=== PATIENT | male | born 2000 | race Two or more races ===

== ENCOUNTER 2023-05-13 07:32 | Inpatient (IN) | payer MEDICAID, OTHER ==
[~2023-05-13] VITALS: Ht 177.8 cm; Wt 76.3 kg
[2023-05-13 08:00] VITALS: PULSE 74; RESP 14; O2SAT 97
[2023-05-13] MEDS ORDERED: SODIUM CHLORIDE 0.9% 1,000 ML IV ONE ×2 (08:00)
[2023-05-13 08:32] LABS: Basophils # (auto) 0 10 ^3/uL (0-0.2); Basophils % (auto) 0.2 % (0.0-2.0); Eosinophils # (auto) 0.1 10 ^3/uL (0-0.8); Eosinophils % (auto) 0.6 % (0.0-7.0); Hematocrit 43.5 % (41.0-53.0); Hemoglobin 14.5 g/dL (13.5-17.5); Mean Corpuscular Hemoglobin 28.2 pg (28.0-32.0); Mean Corpuscular Hgb Conc. 33.4 g/dL (32.0-36.0); Mean Corpuscular Volume 84.5 fL (80.0-100.0); Monocytes # (auto) 0.7 10 ^3/uL (0-1.3); Monocytes % (auto) 4.5 % (0.0-12.0); Neutrophils # (auto) 13.1 10 ^3/uL (1.6-8.6); Neutrophils % (auto) 87.7 % (37.0-80.0); Red Blood Cells 5.15 10^6/uL (4.5-5.90); Red Cell Distribution Width 12.8 % (11.8-14.3); White Blood Cell 14.9 10^3/uL (4.4-10.8)
[2023-05-13 08:49] LABS: Alanine Aminotransferase 30 U/L (7-40); Alkaline Phosphatase 77 U/L (46-116); Anion Gap 10 (5-15); Aspartate Aminotransferase 21 U/L (13-40); BUN/Creatinine Ratio 12.3 (10.0-20.0); Blood Alcohol < 3.0 mg/dL (<10); Blood Urea Nitrogen 16 mg/dL (9-23); Calcium 10.1 mg/dL (8.5-10.1); Carbon Dioxide 23 mmol/L (20-30); Chloride 103 mmol/L (98-107); Glucose 195 mg/dL (74-106); Potassium 4.6 mmol/L (3.5-5.1); Sodium 136 mmol/L (136-145)
[2023-05-13 08:50] LABS: Bilirubin, Total 1.2 mg/dL (0.2-1.0); Total Protein 7.7 g/dL (5.7-8.2)
[2023-05-13] MEDS ORDERED: DEXTROSE (50%) 50ML SYRG IV PRN (10:45)
[2023-05-13] MEDS ORDERED: ONDANSETRON HCL 4 MG/2 ML VIAL IV PRN (10:45)
[2023-05-13] MEDS ORDERED: MORPHINE SULFATE INJ 2 MG/ml SYRG IV PRN (10:45)
[2023-05-13] MEDS ORDERED: LORazepam 2MG/ML-1ML VIAL IV PRN ×2 (10:45→19:15)
[2023-05-13] MEDS ORDERED: SODIUM CHLORIDE 0.9% 1,000 ML IV SCH (10:45)
[2023-05-13] MEDS ORDERED: DOCUSATE SOD 100 MG CAP PO PRN (10:45)
[2023-05-13 10:50] LABS: Amphetamine Screen, Urine Neg (NEGATIVE)
[2023-05-13 10:51] LABS: Barbiturate Scree,Urine Neg (NEGATIVE)
[2023-05-13 10:52] LABS: Benzodiazephine Screen, Urine Neg (NEGATIVE); Cocaine Screen, Urine Neg (NEGATIVE); Opiate Scree,Urine Neg (NEGATIVE)
[2023-05-13 10:53] LABS: Cannabinoid Screen, Urine Pos (NEGATIVE); Phencyclidine Screen, Urine Neg (NEGATIVE)
[2023-05-13 10:57] LABS: Urine Bacteria NONE SEEN /hpf (None Seen); Urine Blood 1+ /uL (Negative); Urine Clarity Clear (Clear); Urine Color Colorless (Yellow); Urine Protein, UAD TRACE (Negative); Urine Specific Gravity 1.012 (1.001-1.035); Urine Urobilinogen Normal (Negative); Urine WBC 1 /hpf (0 - 3)
[2023-05-13] MEDS: InsuLIN REG 1unit/0.01ml Soln (100units/ml) SC SCH ×3 (11:30→22:00)
[2023-05-13] MEDS ORDERED: InsuLIN REG 1unit/0.01ml Soln (100units/ml) SC SCH (12:00)
[2023-05-13] MEDS ORDERED: ACCU-CHEK COMFORT CURVE STRIP VI SCH (12:00)
[2023-05-13] MEDS: SODIUM CHLORIDE 0.9% 1,000 ML IV SCH (16:10)
[2023-05-13] MEDS: ACCU-CHEK COMFORT CURVE STRIP VI SCH ×2 (16:49→22:00)
[2023-05-13 19:45] VITALS: O2SAT 98
[2023-05-13 22:00] VITALS: BP 105/61; PULSE 73; RESP 18; TEMP 98.4; O2SAT 100
[2023-05-13] MEDS ORDERED: SERT25TA84 PO (22:10)
[2023-05-14 11:20] LABS: Alanine Aminotransferase 19 U/L (7-40); Alkaline Phosphatase 60 U/L (46-116); Anion Gap 5 (5-15); Aspartate Aminotransferase 18 U/L (13-40); BUN/Creatinine Ratio 7.2 (10.0-20.0); Bilirubin, Total 1.2 mg/dL (0.2-1.0); Blood Urea Nitrogen 8 mg/dL (9-23); Calcium 8.8 mg/dL (8.5-10.1); Carbon Dioxide 25 mmol/L (20-30); Chloride 111 mmol/L (98-107); Glucose 81 mg/dL (74-106); Potassium 4.2 mmol/L (3.5-5.1); Sodium 141 mmol/L (136-145); Total Protein 6.3 g/dL (5.7-8.2)
[2023-05-14] MEDS: ACCU-CHEK COMFORT CURVE STRIP VI SCH ×3 (11:30→23:11)
[2023-05-14] MEDS: InsuLIN REG 1unit/0.01ml Soln (100units/ml) SC SCH ×3 (11:30→22:00)
[2023-05-14 14:10] LABS: Basophils # (auto) 0 10 ^3/uL (0-0.2); Basophils % (auto) 0.2 % (0.0-2.0); Eosinophils # (auto) 0.1 10 ^3/uL (0-0.8); Hematocrit 39.7 % (41.0-53.0); Hemoglobin 13.2 g/dL (13.5-17.5); Lymphocytes # (auto) 1.7 10 ^3/uL (0.4-5.4); Lymphocytes % (auto) 17.4 % (10.0-50.0); Mean Corpuscular Hemoglobin 28.6 pg (28.0-32.0); Mean Corpuscular Hgb Conc. 33.4 g/dL (32.0-36.0); Mean Corpuscular Volume 85.7 fL (80.0-100.0); Monocytes # (auto) 0.9 10 ^3/uL (0-1.3); Monocytes % (auto) 8.7 % (0.0-12.0); Neutrophils # (auto) 7.2 10 ^3/uL (1.6-8.6); Neutrophils % (auto) 72.7 % (37.0-80.0); Nucleated Red Blood Cells % 0.2 %; Red Blood Cells 4.63 10^6/uL (4.5-5.90); White Blood Cell 9.8 10^3/uL (4.4-10.8)
[2023-05-14 16:30] VITALS: BP 104/64; PULSE 117; RESP 70; TEMP 99.2; O2SAT 96
[2023-05-14 21:52] VITALS: BP 125/69; PULSE 72; RESP 18; TEMP 98.1; O2SAT 97
[2023-05-15] MEDS: SODIUM CHLORIDE 0.9% 1,000 ML IV SCH (03:40)
[2023-05-15 05:15] VITALS: BP 100/58; PULSE 80; RESP 18; TEMP 97.7; O2SAT 96
[2023-05-15 06:28] LABS: Anion Gap 6 (5-15); Carbon Dioxide 27 mmol/L (20-30); Chloride 109 mmol/L (98-107); Potassium 4.2 mmol/L (3.5-5.1); Sodium 142 mmol/L (136-145)
[2023-05-15 06:29] LABS: Calcium 8.8 mg/dL (8.5-10.1)
[2023-05-15 06:34] LABS: BUN/Creatinine Ratio 6.5 (10.0-20.0); Blood Urea Nitrogen 6 mg/dL (9-23); Glucose 81 mg/dL (74-106)
[2023-05-15 06:43] LABS: Basophils # (auto) 0 10 ^3/uL (0-0.2); Basophils % (auto) 0.1 % (0.0-2.0); Eosinophils # (auto) 0.2 10 ^3/uL (0-0.8); Eosinophils % (auto) 2.4 % (0.0-7.0); Hematocrit 39.1 % (41.0-53.0); Hemoglobin 13.2 g/dL (13.5-17.5); Lymphocytes # (auto) 1.6 10 ^3/uL (0.4-5.4); Mean Corpuscular Hemoglobin 28.8 pg (28.0-32.0); Mean Corpuscular Hgb Conc. 33.8 g/dL (32.0-36.0); Mean Corpuscular Volume 85.3 fL (80.0-100.0); Monocytes # (auto) 0.6 10 ^3/uL (0-1.3); Monocytes % (auto) 9.1 % (0.0-12.0); Neutrophils # (auto) 4.1 10 ^3/uL (1.6-8.6); Neutrophils % (auto) 63.4 % (37.0-80.0); Nucleated Red Blood Cells % 0.2 %; Red Blood Cells 4.58 10^6/uL (4.5-5.90); Red Cell Distribution Width 12.8 % (11.8-14.3); White Blood Cell 6.5 10^3/uL (4.4-10.8)
[2023-05-15] MEDS: ACCU-CHEK COMFORT CURVE STRIP VI SCH (06:51)
[2023-05-15] MEDS: InsuLIN REG 1unit/0.01ml Soln (100units/ml) SC SCH (06:51)
[2023-05-15 08:30] VITALS: BP 116/75; PULSE 81; RESP 19; TEMP 97.7; O2SAT 98
[2023-05-15 10:05] VITALS: BP 116/75; PULSE 81; RESP 19; TEMP 97.7; O2SAT 98
== END 2023-05-15 10:35 | disposition home or self-care (01) | DRG 53 ==
LOC: ER 07:32 → EDBD 07:32 → OVERFLOW 10:37 → CENTRAL 21:00
PROVIDERS: ADMIT Internal Medicine Pulmonary Disease; ATTEND Student in an Organized Health Care Education/Training Program
DX: G40.409 Other generalized epilepsy and epileptic syndromes, not intractable, without status epilepticus (principal); D72.829 Elevated white blood cell count, unspecified; J45.909 Unspecified asthma, uncomplicated; R73.9 Hyperglycemia, unspecified; Z82.49 Family history of ischemic heart disease and other diseases of the circulatory system; Z83.3 Family history of diabetes mellitus; R03.0 Elevated blood-pressure reading, without diagnosis of hypertension
CPT/HCPCS: 36415; 70450; 70551; 71045; 80048; 80053; 80307; 80320; 81001; 82962; 83036; 84484; 85025; 86592; 95819; G0378; J2405; J7060

== ENCOUNTER 2023-09-28 10:11 | Emergency (ER) | payer MEDICAID ==
[~2023-09-28] VITALS: Ht 190.5 cm; Wt 76.0 kg
[~2023-09-28 10:11] MED LIST: SERT25TA84 PO
[2023-09-28 10:30] VITALS: PULSE 96; RESP 22; TEMP 97.9; O2SAT 97
[2023-09-28] MEDS: levETIRAcetam 1000 mg/100ml 100 ML IV ONE (10:45)
[2023-09-28] MEDS: SODIUM CHLORIDE 0.9% 1,000 ML IV ONE (10:45)
[2023-09-28] MEDS: FAMOTIDINE (10MG/ML) 2ML VL IV ONE (10:46)
[2023-09-28] MEDS: KETOROLAC TROMETH 30 MG/ML 1ML VIAL IV ONE (10:46)
[2023-09-28] MEDS: ONDANSETRON HCL 4 MG/2 ML VIAL IV ONE ×2 (10:46→17:19)
[2023-09-28 11:07] LABS: Basophils # (auto) 0 10 ^3/uL (0-0.2); Basophils % (auto) 0.2 % (0.0-2.0); Eosinophils # (auto) 0.2 10 ^3/uL (0-0.8); Eosinophils % (auto) 2.1 % (0.0-7.0); Hematocrit 45.9 % (41.0-53.0); Hemoglobin 14.6 g/dL (13.5-17.5); Lymphocytes # (auto) 2.7 10 ^3/uL (0.4-5.4); Lymphocytes % (auto) 24.5 % (10.0-50.0); Mean Corpuscular Hemoglobin 27.7 pg (28.0-32.0); Mean Corpuscular Hgb Conc. 31.8 g/dL (32.0-36.0); Mean Corpuscular Volume 86.8 fL (80.0-100.0); Monocytes # (auto) 0.7 10 ^3/uL (0-1.3); Monocytes % (auto) 6.2 % (0.0-12.0); Neutrophils # (auto) 7.4 10 ^3/uL (1.6-8.6); Red Blood Cells 5.28 10^6/uL (4.5-5.90); Red Cell Distribution Width 13.1 % (11.8-14.3)
[2023-09-28 11:29] LABS: Alanine Aminotransferase 82 U/L (7-40); Albumin 4.4 g/dL (3.2-4.8); Alkaline Phosphatase 74 U/L (46-116); Anion Gap 18 (5-15); Aspartate Aminotransferase 65 U/L (13-40); BUN/Creatinine Ratio 12.6 (10.0-20.0); Blood Alcohol < 3.0 mg/dL (<10); Blood Urea Nitrogen 14 mg/dL (9-23); Calcium 9.1 mg/dL (8.5-10.1); Carbon Dioxide 13 mmol/L (20-30); Chloride 110 mmol/L (98-107); Glucose 159 mg/dL (74-106); Sodium 141 mmol/L (136-145)
[2023-09-28 11:30] LABS: Bilirubin, Total 0.3 mg/dL (0.2-1.0); Total Protein 6.8 g/dL (5.7-8.2)
[2023-09-28 11:47] LABS: Lipase 75 U/L (12-53)
[2023-09-28 13:07] LABS: Urine Bacteria NONE SEEN /hpf (None Seen); Urine Blood Negative /uL (Negative); Urine Clarity Clear (Clear); Urine Color Colorless (Yellow); Urine Hyaline Cast FEW /lpf (0 - 2); Urine Protein, UAD TRACE (Negative); Urine Specific Gravity 1.014 (1.001-1.035); Urine Urobilinogen Normal (Negative); Urine WBC <1 /hpf (0 - 3)
[2023-09-28 13:19] LABS: Amphetamine Screen, Urine Neg (NEGATIVE); Barbiturate Scree,Urine Neg (NEGATIVE); Benzodiazephine Screen, Urine Neg (NEGATIVE); Cocaine Screen, Urine Neg (NEGATIVE); Opiate Scree,Urine Neg (NEGATIVE); Phencyclidine Screen, Urine Neg (NEGATIVE)
[2023-09-28 13:20] LABS: Cannabinoid Screen, Urine Pos (NEGATIVE)
[2023-09-28] MEDS ORDERED: ACET-1304 PO (16:46)
[2023-09-28] MEDS ORDERED: LEVE100012 PO (16:46)
[2023-09-28] MEDS ORDERED: ZOFR4T PO (16:46)
[2023-09-28] MEDS: MORPHINE SULFATE INJ 2 MG/ml SYRG IV ONE (17:20)
[2023-09-28] MEDS: DICYCLOMINE HCL (10MG/ML) 2 ML AMPULE IM ONE (17:55)
[2023-09-28 18:03] VITALS: BP 102/55; PULSE 80; RESP 12; O2SAT 97
== END 2023-09-28 18:05 | disposition home or self-care (01) ==
LOC: ER 10:11
DX: G40.909 Epilepsy, unspecified, not intractable, without status epilepticus (principal); R10.9 Unspecified abdominal pain; R11.10 Vomiting, unspecified; M54.2 Cervicalgia; F15.90 Other stimulant use, unspecified, uncomplicated; Z98.890 Other specified postprocedural states
CPT/HCPCS: 36415; 70450; 72125; 76705; 80053; 80307; 80320; 81001; 83690; 84484; 85025; 96372; 96374; 96375; 96376; 99285; J0500; J1885; J1953; J2270; J2405; J3490

== ENCOUNTER 2023-10-05 13:20 | Emergency (ER) | payer MEDICAID ==
[~2023-10-05] VITALS: Ht 190.5 cm; Wt 76.0 kg
[~2023-10-05 13:20] MED LIST changes: +ACET-1304 PO; +LEVE100012 PO; +ZOFR4T PO
[2023-10-05] MEDS ORDERED: EPINEPHrine HCL 1 MG/10 ML SYRG IV ONE (13:21)
[2023-10-05] MEDS ORDERED: CALCIUM CHLOR(10%) 100MG/ML 10ML SYRINGE IV ONE (13:21)
[2023-10-05] MEDS ORDERED: SODIUM BICARB 8.4% 50Meq/50ml SYR Vial IV ONE (13:21)
[2023-10-05 13:28] VITALS: PULSE 161; RESP 17; O2SAT 72
[2023-10-05 13:47] LABS: Hemoglobin 11.7 g/dL (13.5-17.5); Mean Corpuscular Hemoglobin 28.1 pg (28.0-32.0)
[2023-10-05 13:49] LABS: Hematocrit 39.4 % (41.0-53.0); Mean Corpuscular Hgb Conc. 29.7 g/dL (32.0-36.0); Mean Corpuscular Volume 94.9 fL (80.0-100.0); Red Blood Cells 4.15 10^6/uL (4.5-5.90); White Blood Cell 12.6 10^3/uL (4.4-10.8)
[2023-10-05 13:54] LABS: Basophils % (manual) 0 (0.0-2.0); Blast Cells 0; Eosinophils % (manual) 0 (0-7); Metamyelocytes % 0; Monocytes % (manual) 0 (0-12); Myelocytes % 0; Promyelocytes % 0
[2023-10-05] MEDS ORDERED: NOREPINEPHRINE 8 MG/250ML KIT 250 ML IV SCH ×2 (14:00)
[2023-10-05 14:02] LABS: INR 1.36 (0.9-1.15); Partial Thromboplastin Time 45.8 SEC (24.5-34.5)
[2023-10-05 14:05] LABS: Alanine Aminotransferase 210 U/L (7-40); Albumin 4.6 g/dL (3.2-4.8); Alkaline Phosphatase 123 U/L (46-116); Anion Gap 37 (5-15); Aspartate Aminotransferase 171 U/L (13-40); BUN/Creatinine Ratio 6.9 (10.0-20.0); Bilirubin, Total 0.5 mg/dL (0.2-1.0); Blood Alcohol < 3.0 mg/dL (<10); Blood Urea Nitrogen 11 mg/dL (9-23); Calcium 11.5 mg/dL (8.5-10.1); Carbon Dioxide 10 mmol/L (20-30); Chloride 112 mmol/L (98-107); Glucose 143 mg/dL (74-106); Sodium 159 mmol/L (136-145); Total Protein 7.1 g/dL (5.7-8.2)
[2023-10-05] MEDS: NOREPINEPHRINE 8 MG/250ML KIT 250 ML IV SCH (14:11)
[2023-10-05] MEDS: LORazepam 2MG/ML-1ML VIAL IV ONE (14:12)
[2023-10-05] MEDS: NOREPINEPHRINE 8 MG/250ML KIT 250 ML IV ONE (14:12)
[2023-10-05 14:15] LABS: Potassium 6.3 mmol/L (3.5-5.1)
[2023-10-05] MEDS: PHENYLEPHRINE IV 250 ML IV ONE (14:23)
[2023-10-05] MEDS: PHENYLEPHRINE IV 250 ML IV SCH (14:24)
[2023-10-05 14:50] LABS: Band Neutrophils % (manual) 11; Lymphocytes % (manual) 67 (10.0-50.0); Platelet Estimate Adequate; Reactive Lymphocytes 4
[2023-10-05 15:08] LABS: Amphetamine Screen, Urine Neg (NEGATIVE); Barbiturate Scree,Urine Neg (NEGATIVE); Benzodiazephine Screen, Urine Neg (NEGATIVE); Cannabinoid Screen, Urine Pos (NEGATIVE); Cocaine Screen, Urine Neg (NEGATIVE); Opiate Scree,Urine Neg (NEGATIVE); Phencyclidine Screen, Urine Neg (NEGATIVE)
[2023-10-05] MEDS: SODIUM CHLORIDE 0.9% 1,000 ML IV ONE (15:15)
[2023-10-05] MEDS: SODIUM BICARB 8.4% 50Meq/50ml SYR Vial IV ONE ×7 (15:18→16:28)
[2023-10-05 15:35] LABS: Acetaminophen < 2.0 UG/ML (10.0-20.0)
[2023-10-05 15:37] LABS: Salicylate < 3.0 mg/dL (2.8-20.0)
[2023-10-05] MEDS: CALCIUM CHL 100MG/ML 1,000 MG in D5W 5% 100 ML IV ONE (15:55)
[2023-10-05] MEDS: LACTATED RINGER'S 1,000 ML IV ONE (15:55)
[2023-10-05 16:00] VITALS: TEMP 92.5
[2023-10-05 16:05] VITALS: BP 78/17; PULSE 121; RESP 22; O2SAT 99
[2023-10-05] MEDS: CALCIUM GLUC 1,000mg/50ml-NS 50 ML IV ONE ×2 (16:14→16:28)
[2023-10-05] MEDS ORDERED: VASOPRESSIN 20 UNITS in SODIUM CHL 0.9% 99 ML IV SCH (16:15)
[2023-10-05 16:16] VITALS: BP 73/15; RESP 29; O2SAT 95
[2023-10-05] MEDS: VASOPRESSIN 20 UNITS in SODIUM CHL 0.9% 99 ML IV SCH (16:16)
[2023-10-05] MEDS: SODIUM BICARB 8.4% 50Meq/50ml SYR INJ ONE (16:28)
[2023-10-05 16:31] LABS: Chloride 108 mmol/L (98-107); Sodium 139 mmol/L (136-145)
[2023-10-05 16:32] LABS: Anion Gap 21.00001 (5-15)
[2023-10-05] MEDS: InsuLIN REG 1unit/0.01ml Soln (100units/ml) ONE (16:32)
[2023-10-05 16:37] LABS: Blood Urea Nitrogen 6 mg/dL (9-23); Glucose 169 mg/dL (74-106)
[2023-10-05 16:44] LABS: Calcium 7.4 mg/dL (8.5-10.1)
[2023-10-05 16:48] LABS: Carbon Dioxide < 10 mmol/L (20-30)
[2023-10-05 17:48] VITALS: PULSE 117
== END 2023-10-05 16:37 ==
LOC: ER 13:20 → EDBD 13:20 → ER 16:37
DX: I46.9 Cardiac arrest, cause unspecified (principal); G40.901 Epilepsy, unspecified, not intractable, with status epilepticus; E87.20 Acidosis, unspecified; E87.5 Hyperkalemia; Z79.899 Other long term (current) drug therapy
CPT/HCPCS: 36415; 36600; 70450; 71045; 71260; 72125; 74177; 80048; 80053; 80307; 80320; 80329; 82553; 82805; 84132; 84484; 85007; 85027; 85610; 85730; 86850; 86900; 86901; 87070; 87205; 92950; 93005; 93306; 96365; 96368; 99291; J0171; J0610; J1815; J2370; J7060; Q9967